=== PATIENT | female | born 1950 | race Caucasian/White ===

== ENCOUNTER 2017-09-13 14:30 | Emergency (ER) | payer BC, OTHER ==
[~2017-09-13] VITALS: Ht 157.5 cm; Wt 116.1 kg
[~2017-09-13 14:30] MED LIST: ALPR0.5T96 PO; DOXY-4 PO; FURO-150 PO; VALS1TAB72 PO
[2017-09-13 15:13] VITALS: BP_SYST 141
--- NOTE | 2017-09-13 15:35 | NUR ---
Patient to ER bed 5 to gown for evaluation. Side rails up. Report given to Yesi FERNANDEZ.
--- NOTE | 2017-09-13 15:36 | NUR ---
Pt complains of shortness of breath for a week. Pt states she has a "cough and feels as if she cannot catch her breath." Pt denies fever, vomiting. Pt is AAO x 4 and ambulatory. Pt speaks about 7-8 words in between breaths. No other injuries/complaints per patient or noted.
--- NOTE | 2017-09-13 15:37 | NUR ---
ER Dr. Falcon at bedside examining patient.
--- NOTE | 2017-09-13 16:43 | NUR ---
RT at patient bedside giving breathing treatment. Pt tolerated well.
[2017-09-13] MEDS ORDERED: ALBUTEROL SULFATE 0.083% 2.5 MG/3 ML VIAL.NEB INH ONE (16:45)
--- NOTE | 2017-09-13 17:22 | NUR ---
Pt resting comfortably in hospital bed. no acute distress. will continue to monitor.
[2017-09-13 18:26] VITALS: BP_SYST 132
--- NOTE | 2017-09-13 18:26 | NUR ---
Patient given written and verbal discharge instructions and verbalizes understanding. ER MD discussed with patient the results and treatment provided. Patient in stable condition. ID arm band removed. Rx of Promethazine Hydrochloride with Codeine phosphate given. Patient educated on pain management and to follow up with PMD. Pain Scale 0. Opportunity for questions provided and answered.
== END 2017-09-13 18:26 | disposition home or self-care (01) ==
LOC: SED 14:30
DX: J40 Bronchitis, not specified as acute or chronic (principal); E07.9 Disorder of thyroid, unspecified; Z88.0 Allergy status to penicillin; Z88.2 Allergy status to sulfonamides; Z88.1 Allergy status to other antibiotic agents; Z88.6 Allergy status to analgesic agent
CPT/HCPCS: 36415; 71045; 86710; 94640; 99285

== ENCOUNTER 2022-01-08 18:14 | Inpatient (IN) | payer BC, OTHER ==
[~2022-01-08] VITALS: Ht 157.5 cm; Wt 105.2 kg
[~2022-01-08 18:14] MED LIST changes: +ALPR0.5T PO; -ALPR0.5T96 PO; -DOXY-4 PO; +DOXY100C PO
[2022-01-08 22:19] VITALS: BP_SYST 137
[2022-01-08] MEDS ORDERED: SPIR25TA PO (23:43)
[2022-01-08] MEDS ORDERED: CARV6.2554 PO (23:43)
[2022-01-08] MEDS ORDERED: ALBMDI INH (23:43)
[2022-01-08] MEDS ORDERED: BUME1TAB8 PO (23:43)
[2022-01-08] MEDS ORDERED: MELO15TA13 PO (23:43)
[2022-01-08] MEDS ORDERED: APIX5TAB4 PO (23:43)
[2022-01-08] MEDS ORDERED: FLUT1AER7 IH (23:43)
[2022-01-09] MEDS ORDERED: DOCU-144 PO (01:30)
[2022-01-09] MEDS ORDERED: METH40VI46 IVP (01:30)
[2022-01-09] MEDS ORDERED: ONDA2VIA4 IV (01:30)
[2022-01-09] MEDS ORDERED: [UNRECOGNIZED DRUG - CODE] IV (01:30)
[2022-01-09] MEDS ORDERED: ALBU2.5V7 INH (01:30)
[2022-01-09] MEDS ORDERED: DILT5VIA IVP (01:30)
[2022-01-09] MEDS ORDERED: IPRA3AMP9 INH ×2 (01:30)
[2022-01-09] MEDS ORDERED: DILT30TA36 PO (01:30)
[2022-01-09] MEDS ORDERED: ACET325T53 PO (01:30)
[2022-01-09] MEDS ORDERED: IPRATROPIUM BROM 0.5 MG/2.5 ML VIAL.NEB (ATROVENT) INH ONE (07:30)
[2022-01-09] MEDS ORDERED: BUDESONIDE 0.5 MG/2 ML AMPUL.NEB INH ONE (07:30)
[2022-01-09] MEDS ORDERED: METHYLPREDNISOLONE SOD SUCC 40 MG/ML VIAL IVP ONE (07:30)
[2022-01-09] MEDS ORDERED: levalbuterol HCL 0.63 MG/3 ML VIAL.NEB INH ONE (07:30)
[2022-01-09] MEDS ORDERED: AZITHROMYCIN 500 MG in NS 250 ML IV ONE (08:00)
[2022-01-09 08:03] LABS: BASOPHILS % (AUTO) 0.1 % (0.0-2.0); HEMATOCRIT 36.7 % (36-48); HEMOGLOBIN 12.2 g/dL (12.0-16.0); LYMPHOCYTES # (AUTO) 0.9 K/uL (1.0-5.5); LYMPHOCYTES % (AUTO) 10.7 % (20.5-51.5); MEAN CORPUSCULAR HEMOGLOBIN 28 pg (27-31); MEAN CORPUSCULAR HGB CONC 33 % (32-36); MEAN CORPUSCULAR VOLUME 85 fL (79.0-98.0); MONOCYTES # (AUTO) 0.4 K/uL (0.0-1.0); MONOCYTES % (AUTO) 4.4 % (1.7-9.3); NEUTROPHILS # (AUTO) 6.9 K/uL (1.8-7.7); NEUTROPHILS % (AUTO) 84.8 % (40.0-70.0); PLATELET COUNT (AUTO) 186 K/uL (130-430); RED BLOOD CELL COUNT(AUTO) 4.29 MIL/uL (4.2-6.2); RED CELL DISTRIBUTION WIDTH 17.8 % (9.0-15.0); WHITE BLOOD COUNT (AUTO) 8.1 K/uL (4.8-10.8)
[2022-01-09 08:39] VITALS: BP_SYST 133
[2022-01-09 10:35] VITALS: BP_SYST 133
[2022-01-09] MEDS ORDERED: IPRATROPIUM BROM 0.5 MG/2.5 ML VIAL.NEB (ATROVENT) INH SCH (11:00)
[2022-01-09] MEDS ORDERED: ACETAMINOPHEN 325 MG TABLET PO PRN ×2 (11:15)
[2022-01-09 11:25] VITALS: BP_SYST 115
[2022-01-09] MEDS ORDERED: ONDANSETRON HCL 4 MG/2 ML VIAL IVP PRN (12:15)
[2022-01-09] MEDS: levalbuterol HCL 0.63 MG/3 ML VIAL.NEB INH SCH ×2 (13:51→20:18)
[2022-01-09] MEDS: IPRATROPIUM BROM 0.5 MG/2.5 ML VIAL.NEB (ATROVENT) INH SCH ×2 (13:51→20:18)
[2022-01-09] MEDS ORDERED: NORMAL SALINE 5 ML DISP.SYRIN IVF SCH (14:00)
[2022-01-09] MEDS: METHYLPREDNISOLONE SOD SUCC 40 MG/ML VIAL IVP SCH ×2 (14:36→21:44)
[2022-01-09] MEDS: DILTIAZEM HCL 30 MG TABLET PO SCH ×2 (14:37→21:41)
[2022-01-09] MEDS: NORMAL SALINE 5 ML DISP.SYRIN IVF SCH ×2 (14:37→21:45)
[2022-01-09 15:47] VITALS: BP_SYST 131
[2022-01-09 20:00] VITALS: BP_SYST 142
[2022-01-09] MEDS: BUDESONIDE 0.5 MG/2 ML AMPUL.NEB INH SCH (20:18)
[2022-01-09] MEDS: DOCUSATE SODIUM 100 MG CAPSULE PO SCH (21:00)
[2022-01-09] MEDS: CARVEDILOL 6.25 MG TABLET (COREG) PO SCH (21:38)
[2022-01-09] MEDS: APIXABAN 2.5 MG TABLET PO SCH (21:40)
[2022-01-09] MEDS: ALPRAZolam 0.25 MG TABLET PO SCH (21:42)
[2022-01-10] VITALS: BP_SYST 149
[2022-01-10] MEDS: IPRATROPIUM BROM 0.5 MG/2.5 ML VIAL.NEB (ATROVENT) INH SCH ×4 (01:25→19:01)
[2022-01-10] MEDS: METHYLPREDNISOLONE SOD SUCC 40 MG/ML VIAL IVP SCH ×3 (07:01→23:02)
[2022-01-10] MEDS: NORMAL SALINE 5 ML DISP.SYRIN IVF SCH ×3 (07:02→23:02)
[2022-01-10 07:07] LABS: BASOPHILS % (AUTO) 0.1 % (0.0-2.0); HEMATOCRIT 34.6 % (36-48); HEMOGLOBIN 11.6 g/dL (12.0-16.0); LYMPHOCYTES # (AUTO) 0.7 K/uL (1.0-5.5); LYMPHOCYTES % (AUTO) 10.2 % (20.5-51.5); MEAN CORPUSCULAR HEMOGLOBIN 29 pg (27-31); MEAN CORPUSCULAR HGB CONC 33 % (32-36); MEAN CORPUSCULAR VOLUME 86 fL (79.0-98.0); MONOCYTES # (AUTO) 0.2 K/uL (0.0-1.0); MONOCYTES % (AUTO) 3.1 % (1.7-9.3); NEUTROPHILS # (AUTO) 5.6 K/uL (1.8-7.7); NEUTROPHILS % (AUTO) 86.6 % (40.0-70.0); PLATELET COUNT (AUTO) 144 K/uL (130-430); RED BLOOD CELL COUNT(AUTO) 4.04 MIL/uL (4.2-6.2); RED CELL DISTRIBUTION WIDTH 17.1 % (9.0-15.0); WHITE BLOOD COUNT (AUTO) 6.5 K/uL (4.8-10.8)
[2022-01-10] MEDS: levalbuterol HCL 0.63 MG/3 ML VIAL.NEB INH SCH ×3 (07:47→19:01)
[2022-01-10 07:48] LABS: ANION GAP 5 (5-15); CALCIUM 8.4 mg/dL (8.4-11.0); CHLORIDE 102 mmol/L (98-107); CREATININE 1.22 mg/dL (0.55-1.30); GLUCOSE 124 mg/dL (70-99); POTASSIUM 4.5 mmol/L (3.5-5.1); SODIUM SERUM 137 mmol/L (136-145); UREA NITROGEN, BLOOD 31 mg/dL (8-21)
[2022-01-10] MEDS: BUDESONIDE 0.5 MG/2 ML AMPUL.NEB INH SCH ×2 (07:49→19:04)
[2022-01-10 08:27] VITALS: BP_SYST 157
[2022-01-10] MEDS: CARVEDILOL 6.25 MG TABLET (COREG) PO SCH ×2 (08:32→20:34)
[2022-01-10] MEDS: BUMETANIDE 1 MG TABLET PO SCH (08:33)
[2022-01-10] MEDS: DILTIAZEM HCL 30 MG TABLET PO SCH ×3 (08:34→20:34)
[2022-01-10] MEDS: DOCUSATE SODIUM 100 MG CAPSULE PO SCH ×3 (08:34→20:33)
[2022-01-10] MEDS: MELOXICAM 7.5 MG TABLET PO SCH (08:35)
[2022-01-10] MEDS: SPIRONOLACTONE 25 MG TABLET (ALDACTONE) PO SCH (08:35)
[2022-01-10] MEDS: AZITHROMYCIN 500 MG in NS 250 ML IV SCH (08:36)
[2022-01-10] MEDS: APIXABAN 2.5 MG TABLET PO SCH ×2 (08:37→20:38)
[2022-01-10 13:00] VITALS: BP_SYST 140
[2022-01-10 17:23] VITALS: BP_SYST 130
[2022-01-10 20:00] VITALS: BP_SYST 127
[2022-01-10] MEDS: ALPRAZolam 0.25 MG TABLET PO SCH (20:33)
[2022-01-11] MEDS: levalbuterol HCL 0.63 MG/3 ML VIAL.NEB INH SCH ×3 (00:45→13:00)
[2022-01-11 00:56] VITALS: BP_SYST 137
[2022-01-11] MEDS: METHYLPREDNISOLONE SOD SUCC 40 MG/ML VIAL IVP SCH (05:59)
[2022-01-11] MEDS: NORMAL SALINE 5 ML DISP.SYRIN IVF SCH (06:02)
[2022-01-11] MEDS: IPRATROPIUM BROM 0.5 MG/2.5 ML VIAL.NEB (ATROVENT) INH SCH ×3 (07:18→12:00)
[2022-01-11] MEDS: BUDESONIDE 0.5 MG/2 ML AMPUL.NEB INH SCH (07:21)
[2022-01-11 08:06] VITALS: BP_SYST 170
[2022-01-11] MEDS: AZITHROMYCIN 500 MG in NS 250 ML IV SCH (08:10)
[2022-01-11] MEDS: MELOXICAM 7.5 MG TABLET PO SCH (08:10)
[2022-01-11] MEDS: DILTIAZEM HCL 30 MG TABLET PO SCH (08:11)
[2022-01-11] MEDS: SPIRONOLACTONE 25 MG TABLET (ALDACTONE) PO SCH (08:11)
[2022-01-11] MEDS: BUMETANIDE 1 MG TABLET PO SCH (08:12)
[2022-01-11] MEDS: CARVEDILOL 6.25 MG TABLET (COREG) PO SCH (08:13)
[2022-01-11] MEDS: APIXABAN 2.5 MG TABLET PO SCH (08:14)
[2022-01-11] MEDS: DOCUSATE SODIUM 100 MG CAPSULE PO SCH (08:15)
[2022-01-11 09:55] LABS: BASOPHILS % (AUTO) 0.1 % (0.0-2.0); HEMATOCRIT 38.3 % (36-48); HEMOGLOBIN 12.5 g/dL (12.0-16.0); LYMPHOCYTES # (AUTO) 0.4 K/uL (1.0-5.5); LYMPHOCYTES % (AUTO) 5.6 % (20.5-51.5); MEAN CORPUSCULAR HEMOGLOBIN 28 pg (27-31); MEAN CORPUSCULAR HGB CONC 33 % (32-36); MEAN CORPUSCULAR VOLUME 87 fL (79.0-98.0); MONOCYTES # (AUTO) 0.1 K/uL (0.0-1.0); MONOCYTES % (AUTO) 1.2 % (1.7-9.3); NEUTROPHILS # (AUTO) 6.4 K/uL (1.8-7.7); NEUTROPHILS % (AUTO) 93.1 % (40.0-70.0); PLATELET COUNT (AUTO) 169 K/uL (130-430); RED BLOOD CELL COUNT(AUTO) 4.42 MIL/uL (4.2-6.2); RED CELL DISTRIBUTION WIDTH 17.3 % (9.0-15.0); WHITE BLOOD COUNT (AUTO) 6.9 K/uL (4.8-10.8)
[2022-01-11] MEDS ORDERED: AZIT500T10 PO (09:55)
[2022-01-11] MEDS ORDERED: PRED20TA PO (09:55)
[2022-01-11 10:56] LABS: ANION GAP 7 (5-15); CALCIUM 8.1 mg/dL (8.4-11.0); CHLORIDE 100 mmol/L (98-107); CREATININE 1.43 mg/dL (0.55-1.30); GLUCOSE 199 mg/dL (70-99); POTASSIUM 3.9 mmol/L (3.5-5.1); SODIUM SERUM 137 mmol/L (136-145); UREA NITROGEN, BLOOD 39 mg/dL (8-21)
[2022-01-11 12:44] VITALS: BP_SYST 118
[2022-01-11 12:59] VITALS: BP_SYST 118
== END 2022-01-11 14:30 | disposition home health service (06) | DRG 189 ==
LOC: STU 22:10
PROVIDERS: ADMIT Preventive Medicine Preventive Medicine/Occupational Environmental Medicine; ATTEND Preventive Medicine Preventive Medicine/Occupational Environmental Medicine
DX: J96.01 Acute respiratory failure with hypoxia (principal); J44.1 Chronic obstructive pulmonary disease with (acute) exacerbation; I48.20 Chronic atrial fibrillation, unspecified; Z68.41 Body mass index [BMI] 40.0-44.9, adult; J44.0 Chronic obstructive pulmonary disease with (acute) lower respiratory infection; G47.33 Obstructive sleep apnea (adult) (pediatric); J20.9 Acute bronchitis, unspecified; E66.09 Other obesity due to excess calories; D64.9 Anemia, unspecified; Z20.822 Contact with and (suspected) exposure to COVID-19; R79.89 Other specified abnormal findings of blood chemistry; I11.0 Hypertensive heart disease with heart failure; I50.9 Heart failure, unspecified; Z79.01 Long term (current) use of anticoagulants; Z87.891 Personal history of nicotine dependence; Z91.19 Patient's noncompliance with other medical treatment and regimen
CPT/HCPCS: 36415; 36600; 71045; 80048; 82803-TC; 83880; 85025; 87040; 87081; 93005; 93306; 94640; 94760; G0378; J0456; J1030; J7050; J7614; J7626